=== PATIENT | female | born 2000 ===

== ENCOUNTER 2023-02-21 15:30 | Inpatient (IN) | payer BC ==
[2023-02-21] MEDS ORDERED: Sodium Chloride 0.9% 10 ML Syringe FLUSH PRN (16:10)
[2023-02-21] MEDS ORDERED: Tranexamic Acid IN NACL,ISO-OS 1,000 MG in Premix Bag 1 BAG IV PRN ×2 (16:10)
[2023-02-21] MEDS ORDERED: Sodium Chloride 0.9% 20 ML SDV IV PRN (16:10)
[2023-02-21] MEDS ORDERED: Sodium Chloride 0.9% 2.5 ML Syringe FLUSH PRN (16:10)
[2023-02-21] MEDS ORDERED: Methylergonovine 0.2 MG/1 ML Amp IM PRN (16:10)
[2023-02-21] MEDS ORDERED: Ondansetron 4 MG/2 ML SDV IVPUSH PRN (16:10)
[2023-02-21] MEDS ORDERED: Nalbuphine 10 MG/0.5 ML Syringe IVPUSH PRN (16:10)
[2023-02-21] MEDS ORDERED: Carboprost Tromethamine 250 MCG/1 mL Vial IM PRN (16:10)
[2023-02-21] MEDS ORDERED: Misoprostol 200 MCG Tab PO PRN (16:10)
[2023-02-21] MEDS ORDERED: Water For Irrigation,Sterile 1,000 ML Container IRR PRN (16:10)
[2023-02-21] MEDS ORDERED: Terbutaline 1 MG/ML SDV SUBCUT PRN (16:10)
[2023-02-21] MEDS ORDERED: Lidocaine 1% 50 ML MDV INJECT PRN (16:10)
[2023-02-21] MEDS ORDERED: Oxytocin/0.9 % Sodium Chloride 30 UNIT/500 ML BAG IV SCH ×2 (16:15)
[2023-02-21 17:15] LABS: HEMATOCRIT 38.7 % (36.0-46.0); HEMOGLOBIN 13.6 g/dL (12.0-16.0); MEAN CORPUSCULAR HEMOGLOBIN 33.7 pg (27.0-32.0); MEAN CORPUSCULAR HGB CONC 35.1 g/dL (31.0-37.0); MEAN CORPUSCULAR VOLUME 95.8 fL (80.0-98.0); MEAN PLATELET VOLUME 11.1 fL (7.40-12.00); RED BLOOD CELL COUNT 4.04 M/uL (4.30-5.90); WHITE BLOOD CELL COUNT,WBC 12.56 K/uL (4.0-11.0)
[2023-02-21] MEDS: Lactated Ringers 1,000 ML IV SCH ×2 (17:25→20:27)
[2023-02-21] MEDS ORDERED: Phenylephrine HCl 0.5 MG/5 ML AMP ONE (20:19)
[2023-02-21] MEDS ORDERED: Ropivacaine/PF 400 MG/200 ML PCA ONE (20:19)
[2023-02-21] MEDS ORDERED: ePHEDrine 50 MG/ML SDV IVPUSH PRN ×2 (20:29)
[2023-02-21] MEDS ORDERED: Phenylephrine HCl 0.5 MG/5 ML AMP IVPUSH PRN (20:29)
[2023-02-21] MEDS ORDERED: Ropivacaine HCl/PF 400 MG in Premix Bag 1 BAG EPIDUR SCH (20:30)
[2023-02-22] MEDS: Lactated Ringers 1,000 ML IV SCH (00:33)
[2023-02-22] MEDS ORDERED: Benzocaine/Menthol 20%-0.5% Spray 78 GM Cannister TOP PRN ×2 (03:52→04:04)
[2023-02-22] MEDS ORDERED: oxyCODONE 5 MG Tab PO PRN (03:52)
[2023-02-22] MEDS ORDERED: Ibuprofen 400 MG Tab PO PRN (03:52)
[2023-02-22] MEDS ORDERED: Lanolin 100% Cream 7 GM Tube TOP PRN (03:52)
[2023-02-22] MEDS ORDERED: Bisacodyl 10 MG Supp RECTAL PRN (03:52)
[2023-02-22] MEDS ORDERED: Acetaminophen 500 MG Tab PO PRN (03:52)
[2023-02-22 04:07] LABS: PH,UMBILICAL ARTERIAL 7.116 (7.18-7.38); PH,UMBILICAL VENOUS 7.186 (7.25-7.45)
[2023-02-22] MEDS ORDERED: Methylergonovine 0.2 MG/1 ML Amp ONE (04:25)
[2023-02-22] MEDS ORDERED: Tranexamic Acid 1,000 MG/10 ML Vial ONE (04:31)
[2023-02-22] MEDS ORDERED: Tranexamic Acid IN NACL,ISO-OS 1,000 MG in Premix Bag 1 BAG IV SCH ×2 (04:45)
[2023-02-22 06:06] LABS: HEMATOCRIT 37.1 % (36.0-46.0); HEMOGLOBIN 12.6 g/dL (12.0-16.0); MEAN CORPUSCULAR HEMOGLOBIN 32.6 pg (27.0-32.0); MEAN CORPUSCULAR VOLUME 96.1 fL (80.0-98.0); MEAN PLATELET VOLUME 10.1 fL (7.40-12.00); RED BLOOD CELL COUNT 3.86 M/uL (4.30-5.90); WHITE BLOOD CELL COUNT,WBC 17.86 K/uL (4.0-11.0)
[2023-02-22] MEDS: Witch Hazel Medicated Pads 40/Jar TOP PRN (06:21)
[2023-02-22] MEDS: Acetaminophen 500 MG Tab PO PRN (06:23)
[2023-02-22 06:28] LABS: ALBUMIN 2.4 g/dL (3.4-5.0); CALCIUM 8.6 mg/dL (8.5-10.1); CARBON DIOXIDE,CO2 24.7 mmol/L (21.0-32.0); CREATININE 0.7 mg/dL (0.6-1.0); EST CRCL DRUG DOSING (CG) 116.01 mL/min; POTASSIUM,K 3.4 mmol/L (3.5-5.1)
[2023-02-22 06:29] LABS: A/G RATIO 0.7 (0.9-1.6); BILIRUBIN TOTAL 0.4 mg/dL (0.2-1.0)
[2023-02-22 06:46] LABS: INR 0.96 (0.86-1.11); PTT,PARTIAL THROMBOPLSTIN TIME 27.6 SEC (23.9-30.7)
[2023-02-22] MEDS: Ibuprofen 800 MG Tab PO PRN (20:18)
[2023-02-22] MEDS: Docusate Sodium 100 MG Cap PO PRN (20:42)
[2023-02-23] MEDS: Acetaminophen 500 MG Tab PO PRN ×2 (03:13→10:21)
[2023-02-23] MEDS: Ibuprofen 800 MG Tab PO PRN ×2 (03:13→10:19)
[2023-02-23 06:25] LABS: HEMATOCRIT 35.8 % (36.0-46.0); HEMOGLOBIN 12.1 g/dL (12.0-16.0)
[2023-02-23] MEDS: Docusate Sodium 100 MG Cap PO PRN (10:21)
[2023-02-23] MEDS: Witch Hazel Medicated Pads 40/Jar TOP PRN (14:09)
== END 2023-02-23 14:37 | disposition home or self-care (01) | DRG 560 ==
LOC: MW.OBCHECK 15:30 → MW.OB 15:31 → MW.OBCHECK 16:10 → MW.OB 16:10 → OBSVTOIN 02-22 03:28 → MW.OB 02-22 11:29
PROVIDERS: ADMIT Obstetrics & Gynecology; ATTEND Obstetrics & Gynecology
PROC: 10E0XZZ Delivery of Products of Conception, External Approach (ICD-10-PCS; principal; 2023-02-22)
PROC: 0UQMXZZ Repair Vulva, External Approach (ICD-10-PCS; 2023-02-22)
PROC: 3E0R3BZ Introduction of Anesthetic Agent into Spinal Canal, Percutaneous Approach (ICD-10-PCS; 2023-02-22)
PROC: 00HU33Z Insertion of Infusion Device into Spinal Canal, Percutaneous Approach (ICD-10-PCS; 2023-02-22)
PROC: 3E033VJ Introduction of Other Hormone into Peripheral Vein, Percutaneous Approach (ICD-10-PCS; 2023-02-22)
DX: O41.03X0 Oligohydramnios, third trimester, not applicable or unspecified (principal); O48.0 Post-term pregnancy; O70.0 First degree perineal laceration during delivery; O76 Abnormality in fetal heart rate and rhythm complicating labor and delivery; Z90.89 Acquired absence of other organs; Z88.0 Allergy status to penicillin; Z88.1 Allergy status to other antibiotic agents; Z88.2 Allergy status to sulfonamides; Z37.0 Single live birth; Z3A.40 40 weeks gestation of pregnancy
CPT/HCPCS: 01967; 36415; 51702; 80053; 82803; 85014; 85018; 85027; 85384; 85610; 85730; 86592; 86850; 86900; 86901; 86920; A9270-GY; J2210; J2370; J2590; J2795; J3490; J7120